=== PATIENT | female | born 1960 | race Two or more races ===

== ENCOUNTER 2017-11-26 13:29 | Outpatient (CLI) | payer OTHER | END 2017-11-26 13:42 | disposition home or self-care (01) | LOC: MAMO-SONO 13:29 | DX: Z12.31 Encounter for screening mammogram for malignant neoplasm of breast (principal) ==

== ENCOUNTER 2018-02-18 08:48 | Emergency (ER) | payer OTHER ==
[~2018-02-18] VITALS: Ht 157.5 cm; Wt 64.9 kg
== END 2018-02-18 09:31 | disposition home or self-care (01) ==
LOC: ER 08:48
DX: B00.9 Herpesviral infection, unspecified (principal)

== ENCOUNTER 2018-12-04 12:58 | Outpatient (CLI) | payer OTHER | END 2018-12-04 13:14 | disposition home or self-care (01) | LOC: MAMO-SONO 12:58 | DX: Z12.31 Encounter for screening mammogram for malignant neoplasm of breast (principal); N95.1 Menopausal and female climacteric states ==

== ENCOUNTER 2020-10-05 08:37 | Outpatient (CLI) | payer OTHER | END 2020-10-05 08:41 | disposition home or self-care (01) | LOC: MAMO-SONO 08:37 | PROVIDERS: ATTEND Obstetrics & Gynecology | DX: N60.11 Diffuse cystic mastopathy of right breast (principal); Z12.31 Encounter for screening mammogram for malignant neoplasm of breast; N64.59 Other signs and symptoms in breast ==

== ENCOUNTER 2022-09-25 13:02 | Outpatient (CLI) | payer OTHER | END 2022-09-25 13:08 | disposition home or self-care (01) | LOC: MAMO-SONO 13:02 | PROVIDERS: ATTEND Obstetrics & Gynecology | DX: N60.11 Diffuse cystic mastopathy of right breast (principal) ==

== ENCOUNTER 2024-01-18 09:13 | Emergency (ER) | payer OTHER ==
[~2024-01-18] VITALS: Ht 167.6 cm; Wt 73.5 kg
[2024-01-18 10:21] LABS: HEMATOCRIT 42.5 % (36.0-45.00); HEMOGLOBIN 14.7 g/dL (12.0-15.00); MEAN CELL VOLUME 80.6 fL (80.00-100.00); MEAN CORPUSCULAR HEMOGLOBIN 27.9 pg (27.00-32.0); MEAN CORPUSCULAR HGB CONC 34.6 g/dl (32.0-36.0); PLATELET COUNT 390 K/uL (150-450); RED BLOOD COUNT 5.27 M/uL (4.00-6.00); RED CELL DISTRIBUTION WIDTH 13.8 % (11.5-14.5)
[2024-01-18 10:44] LABS: INR 0.98; PARTIAL THROMBOPLASTIN TIME 29.7 SECONDS (22.0-34.0); PROTHROMBIN TIME 10.3 SECONDS (9.0-11.5)
[2024-01-18 11:00] LABS: ALBUMIN 3.4 gm/dL (3.4-5.0); BILIRUBIN TOTAL 0.42 mg/dL (0.3-1.2); CALCIUM 9.3 mg/dL (8.5-10.1); CREATININE SERUM 0.7 mg/dL (0.55-1.02); GFR 84.24; GLOBULINA 3.6 G/DL (2.4-3.5); POTASSIUM 4.2 mEq/L (3.5-5.1)
[2024-01-18] MEDS ORDERED: DEXAMETHASONE SODIUM PHOSPHATE 4 MG/ML VIAL IV ONE (11:15)
[2024-01-18] MEDS ORDERED: LevETIRAcetam 500 MG/5 ML VIAL IV ONE (11:45)
[2024-01-18] MEDS ORDERED: MORPHINE SULFATE 4 MG/ML VIAL IV ONE (13:45)
== END 2024-01-18 14:22 | disposition home or self-care (01) ==
LOC: ER 09:13
PROVIDERS: General Practice
DX: R90.0 Intracranial space-occupying lesion found on diagnostic imaging of central nervous system (principal); Z20.822 Contact with and (suspected) exposure to COVID-19